=== PATIENT | female | born 1935 | race Caucasian/White ===

== ENCOUNTER 2021-02-02 13:37 | Emergency (ER) | payer MEDICARE, OTHER ==
[2021-02-02] MEDS: Sodium Chloride 0.9% 250 ML IV SCH (13:37)
[2021-02-02] MEDS ORDERED: Sodium Chloride 0.9% 10 ML Syringe FLUSH PRN (13:59)
--- NOTE | 2021-02-02 14:09 | EDM.PDOC ---
ED HPI GENERAL MEDICAL PROBLEM - General Chief Complaint: General Stated Complaint: Confusion,Hypotension Time Seen by Provider: 02/02/21 13:57 Source of Information: Reports: Patient, Other ([facility] staff) History Limitations: Reports: No Limitations - History of Present Illness INITIAL COMMENTS - FREE TEXT/NARRATIVE: Patient referred to ER from [facility] due to increased confusion and hypotension noted earlier today. Staff concerned about possible sepsis from UTI. Patient had asymptomatic pyuria recently be it was elected to observe patient at that time and no antibiotics were initiated. Patient says she recalls being confused this morning and did not know how she got into her wheelchair. She says she feels fine now. Alert and oriented. No accompanying focal neuro changes o bserved/reported by staff. - Related Data Allergies Allergy/AdvReac Type Severity Reaction Status Date / Time No Known Allergies Allergy Verified 03/28/18 10:34 Home Meds: Home Meds Acetaminophen [Acetaminophen Extra Strength] 1,000 mg PO BID PRN 03/28/18 [History] Aspirin [Adult Low Dose Aspirin EC] 81 mg PO DAILY@11 03/28/18 [History] Cyclobenzaprine [Flexeril] 5 mg PO BID@0400,1800 03/28/18 [History] Gabapentin [Neurontin] 1,200 mg PO TID@0400,1100,1800 03/28/18 [History] Mirtazapine 7.5 mg PO DAILY@04 03/28/18 [History] Rosuvastatin Calcium 20 mg PO DAILY@04 03/28/18 [History] Cholecalciferol (Vitamin D3) [Vitamin D3] 2,000 unit PO DAILY@0400 02/02/21 [History] Clotrimazole [Clotrimazole 1%] 1 applic TOP BID 02/02/21 [History] DULoxetine [Cymbalta] 60 mg PO DAILY@1800 02/02/21 [History] Diclofenac Epolamine [Flector] 1 each TD Q12HR PRN 02/02/21 [History] MO/Pet,Wh/Phenylephrine/Shk Lv [Preparation H Oint] 57 gm RC ASDIRECTED PRN 02/02/21 [History] Mag Hydrox/Aluminum Hyd/Simeth [Maalox Maximum Strength Susp] 2.5 ml PO QID PRN 02/02/21 [History] Magnesium Hydroxide [Milk of Magnesia] 30 ml PO DAILY PRN 02/02/21 [History] Mineral Oil/Petrolatum,White [Genteal Tears Severe 3%-94%] 3.5 gm EYEBOTH TID PRN 02/02/21 [History] Oxybutynin Chloride [Oxybutynin Chloride ER] 1 tab PO DAILY@1800 02/02/21 [Hi story] PEG 400/Hypromellose/Glycerin [Visine Tears Drops] 2 drop EYEBOTH QID PRN 02/02/21 [History] Pantoprazole Sodium [Protonix] 40 mg PO DAILY@0400 02/02/21 [History] Sucralfate 1 gm PO 0000,0400,1100,1800 02/02/21 [History] Sulfamethoxazole/Trimethoprim [Septra DS] 1 each PO BID #14 tab 02/02/21 [Rx] Trolamine Salicylate/Aloe Vera [Aspercreme 10%] 1 applic TOP BID PRN 02/02/21 [History] Vit A/Vit C/Vit E/Zinc/Copper [Preservision Areds Softgel] 1 cap PO BID@0400,1800 02/02/21 [History] diphenhydrAMINE [Benadryl] 2.5 ml PO QID PRN 02/02/21 [History] metFORMIN [Glucophage] 1,000 mg PO DAILY@0400 02/02/21 [History] polyethylene glycoL 3350 [MiraLAX] 17 gm PO DAILY PRN 02/02/21 [History] Past Medical History HEENT History: Reports: Cataract, Glaucoma, Hard of Hearing, Impaired Vision, Other (See Below) Other HEENT History: She wears glasses. No hearing aide therapy. Cardiovascular History: Reports: CAD, High Cholesterol, FL, PTCA, Syncope, Other (See Below) Other Cardiovascular History: History of recurrent syncope/vasovagal syncope. History of FL in 2004 with procedure as below. Respiratory History: Reports: COPD, TB, Other (See Below) Other Respiratory History: COPD by chest x-ray with no current medical therapy. Apparent tuberculosis diagnosed as a teenager. Gastrointestinal History: Reports: Cholelithiasis, GERD, PUD, Other (See Below) Other Gastrointestinal History: Previous duodenal ulcer but no direct GI bleed. Cholelithiasis/sludge with no surgery required. Genitourinary History: Reports: Urinary Incontinence, UTI, Recurrent [employer] History: Reports: Dysfunctional Uterine Bleeding, Fibroids, Polycystic Ovaries, , Spontaneous Other [employer] History: Menopause at age 54. 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 Musculoskeletal History: Reports: Arthritis, Back Pain, Chronic, Fracture, Neck Pain, Chronic, Osteoarthritis, Osteoporosis, Other (See Below) Other Musculoskeletal History: History of spondylosis and spondylolisthesis with sciatica and chronic pain syndrome. Dupuytren contractures. Left digit #1 fracture in 1984 with surgery as below. Neurological History: Reports: Headaches, Chronic, Neuropathy, Diabetic, Neuropathy, Peripheral Psychiatric History: Reports: Anxiety, Depression, Other (See Below) Other Psychiatric History: Chronic insomnia Endocrine/Metabolic History: Reports: Diabetes, Type II, Osteopenia, Osteoporosis Hematologic History: Reports: Anemia, Blood Transfusion(s), Other (See Below) Other Hematologic History: Transfusions 3 secondary to bleeding from ovarian cysts as below? Immunologic History: Reports: None Oncologic (Cancer) History: Reports: None Dermatologic History: Reports: None - Infectious Disease History Infectious Disease History: Reports: Chicken Pox, Shingles, TB Other Infectious Disease History: Left facial herpes zoster in her 70s with no ocular involvement. TB diagnosed in teenage years as above with apparent previous treatment. - Past Surgical History Head Surgeries/Procedures: Reports: None HEENT Surgical History: Reports: Cataract Surgery, Eye Surgery, Oral Surgery, Other (See Below) Other HEENT Surgeries/Procedures: Bilateral cataract surgery in her late 70s. Surgery of her glaucoma bilaterally initially in her 60s and then in her 70s. Cardiovascular Surgical History: Reports: Coronary Artery Stent, Percutaneous Transluminal Angioplasty, Other (See Below) Other Cardiovascular Surgeries/Procedures: PTCA/stent 3 in 2004. Respiratory Surgical History: Reports: None GI Surgical History: Reports: Appendectomy, Colonoscopy, EGD, Other (See Below) Other GI Surgeries/Procedures: Colonoscopy and EGD in early 1999. Incidental appendectomy at time of bilateral partial nephrectomies as below. Female Surgical History: Reports: D&C, Oophorectomy, Other (See Below) Other Female Surgeries/Procedures: D&C secondary to SAB at about age 22. Bilateral partial hysterectomy secondary to ovarian ruptures with secondary severe bleeding requiring blood transfusions as above. Endocrine Surgical History: Reports: None Neurological Surgical History: Reports: C-Spine, Laminectomy, Lumbar Spine, Spinal Fusion, Other (See Below) Other Neurological Surgeries/Procedures: C-spine spinal fusions initially in 1989 and 1991. Laminectomy in the lumbar regions and 1999 and in 2001. Musculoskeletal Surgical History: Reports: Carpal Tunnel, Ganglion Cyst, ORIF, Other (See Below) Other Musculoskeletal Surgeries/Procedures:: Right-sided carpal tunnel release in 1985 and concomitant partial right wrist fusion. Ganglion cyst excision in right wrist in the early . ORIF of digit #1 left foot fracture in 1984. Oncologic Surgical History: Reports: None Dermatological Surgical History: Reports: None Social & Family History - Family History Family Medical History: Unobtainable - Caffeine Use Caffeine Use: Reports: Soda (8 sodas per day), Tea (8 Cups per day). Denies: Coffee, Energy Drinks - Living Situation & Occupation Living situation: Reports: ( in [facility]), Extended Care Facility (Admitted to [facility] in [facility] on 03/27/18) Occupation: Disabled (Disabled in 1992 secondary to her osteoarthritis. Formerly a teacher.) ED ROS GENERAL - Review of Systems Review Of Systems: See Below Constitutional: Reports: No Symptoms HEENT: Reports: No Symptoms Respiratory: Reports: No Symptoms Cardiovascular: Reports: No Symptoms GI/Abdominal: Reports: Other (No acute changes. Says she has some chronic discomfort and generalized abdominal area. Unchanged. ). Denies: Melena, Nausea, Vomiting : Reports: No Symptoms. Denies: Dysuria, Flank Pain, Frequency, Hematuria, Pain, Urgency, Urinary Retention Musculoskeletal: Reports: Other (no acute changes from baseline) Skin: Reports: No Symptoms Neurological: Reports: Confusion, Other (No acute changes from baseline other than the earlier episode of confusion) Psychiatric: Reports: Confusion Hematologic/Lymphatic: Reports: No Symptoms Immunologic: Reports: No Symptoms ED EXAM, GENERAL - Physical Exam Exam: See Below Exam Limited By: No Limitations General Appearance: Alert, WD/WN, No Apparent Distress Eye Exam: Bilateral Eye: EOMI, PERRL Ears: Other (has hearing aids) Nose: No: Nasal Deformity, Nasal Swelling, Nasal Drainage Throat/Mouth: Normal Voice, No Airway Compromise, Other (left corner mouth/cheek droop) Head: Atraumatic Neck: Supple, Non-Tender, Full Range of Motion Respiratory/Chest: No Respiratory Distress, Lungs Clear, Normal Breath Sounds, No Accessory Muscle Use, Chest Non-Tender Cardiovascular: Regular Rate, Rhythm, No Edema, No JVD, No Murmur GI/Abdominal: Soft, Other (mild discomfort all quadrants per patient/says it is "normal" level discomfort. ) (Female) Exam: Deferred Rectal (Female) Exam: Deferred Back Exam: No: CVA Tenderness (L), CVA Tenderness (R), Muscle Spasm Extremities: No Pedal Edema, Normal Capillary Refill, Other (mild diffuse tenderness legs but patient says this is also chronic) Neurological: Alert, Oriented, Other (Moves all 4 limbs equally. Has above noted left facial droop which is not new) Psychiatric: Normal Affect, Normal Mood, Other (Verbally profuse/nonstop talking during evaluation) Skin Exam: Warm, Dry, Normal Color Course - Orders/Labs/Meds Orders: Active Orders 24 hr Category Date Time Status Head wo Cont [CT] Stat Exams 02/02/21 14:28 Taken COMPREHENSIVE METABOLIC PN,CMP [CHEM] Stat Lab 02/02/21 14:15 Results CULTURE BLOOD [BC] Stat Lab 02/02/21 14:15 Received CULTURE BLOOD [BC] Stat Lab 02/02/21 14:40 Received CULTURE URINE [RM] Routine Lab 02/02/21 18:07 Ordered MG [MAGNESIUM] [CHEM] Stat Lab 02/02/21 14:15 Results Sodium Chloride 0.9% [Normal Saline] 250 ml Med 02/02/21 13:00 Active IV ASDIRECTED Sodium Chloride 0.9% [Saline Flush] Med 02/02/21 13:59 Active 10 ml FLUSH ASDIRECTED PRN Blood Culture x2 Reflex Set [OM.PC] Stat Oth 02/02/21 13:59 Ordered Saline Lock Insert [OM.PC] Routine Oth 02/02/21 13:59 Ordered Medication Orders Sodium Chloride (Normal Saline) 250 mls @ 999 mls/hr IV ASDIRECTED TYRON Last Admin: 02/02/21 13:37 Dose: 999 mls/hr Documented by: ASHLEIGHTAParul Sodium Chloride (Sodium Chloride 0.9% 10 Ml Syringe) 10 ml FLUSH ASDIRECTED PRN PRN Reason: Keep Vein Open Labs: Laboratory Tests 02/02/21 02/02/21 02/02/21 Range/Units 14:15 14:15 14:15 WBC 16.8 H (4.0-10.2) K/uL RBC 3.69 L (3.77-5.09) M/uL Hgb 11.0 L (11.7-15.5) g/dL Hct 33.0 L (34.0-46.0) % MCV 89.4 (84.0-98.0) fL MCH 29.8 (28.2-33.3) pg MCHC 33.3 (31.7-36.0) g/dL RDW 14.3 H (11.2-14.1) % Plt Count 226 (150-350) K/uL Neut % (Auto) 85.3 H (45.0-80.0) % Lymph % (Auto) 4.5 L (10.0-50.0) % [place] % (Auto) 9.9 (2.0-14.0) % Eos % (Auto) 0.0 (0.0-5.0) % Baso % (Auto) 0.3 (0.0-2.0) % Neut # (Auto) 14.34 H (1.40-7.00) K/uL Lymph # (Auto) 0.75 (0.50-3.50) K/uL [place] # (Auto) 1.66 H (0.00-1.00) K/uL Eos # (Auto) 0.00 (0.00-0.50) K/uL Baso # (Auto) 0.05 (0.00-0.20) K/uL Sodium 130 L (136-145) mmol/L Potassium 4.4 (3.5-5.1) mmol/L Chloride 94 L (98-107) mmol/L Carbon Dioxide 25.2 (21.0-32.0) mmol/L Anion Gap 15.2 H (7-15) meq/L BUN 30 H (7-18) mg/dL Creatinine 1.67 H (0.51-1.17) mg/dL Est Cr Clr Drug Dosing TNP Estimated GFR (MDRD) 29 mL/min Glucose 137 H (70-99) mg/dL Lactic Acid 2.2 H (0.4-2.0) mmol/L Calcium 9.1 (8.5-10.1) mg/dL Magnesium 2.0 (1.8-2.4) mg/dL Total Bilirubin 0.5 (0.2-1.0) mg/dL ALT 24 (12-78) U/L Alkaline Phosphatase 85 (46-116) IU/L Total Protein 7.7 (6.4-8.2) g/dL Albumin 3.8 (3.4-5.0) g/dL Specimen Type Urine Color Urine Appearance Urine pH (5.0-9.0) Ur Specific [place] (1.005-1.030) Urine Protein (NEGATIVE) mg/dL Urine Glucose (UA) (NEGATIVE) mg/dL Urine Ketones (NEGATIVE) mg/dL Urine Occult Blood (NEGATIVE) Urine Nitrite (NEGATIVE) Urine Bilirubin (NEGATIVE) Urine Urobilinogen (0.2-1.0) E.U./dL Ur Leukocyte Esterase (NEGATIVE) U Hyaline Cast (Auto) Urine RBC /HPF Urine WBC /HPF Ur Epithelial Cells /LPF Urine Bacteria (NONE TO FEW) /HPF 02/02/21 Range/Units 15:55 WBC (4.0-10.2) K/uL RBC (3.77-5.09) M/uL Hgb (11.7-15.5) g/dL Hct (34.0-46.0) % MCV (84.0-98.0) fL MCH (28.2-33.3) pg MCHC (31.7-36.0) g/dL RDW (11.2-14.1) % Plt Count (150-350) K/uL Neut % (Auto) (45.0-80.0) % Lymph % (Auto) (10.0-50.0) % [place] % (Auto) (2.0-14.0) % Eos % (Auto) (0.0-5.0) % Baso % (Auto) (0.0-2.0) % Neut # (Auto) (1.40-7.00) K/uL Lymph # (Auto) (0.50-3.50) K/uL [place] # (Auto) (0.00-1.00) K/uL Eos # (Auto) (0.00-0.50) K/uL Baso # (Auto) (0.00-0.20) K/uL Sodium (136-145) mmol/L Potassium (3.5-5.1) mmol/L Chloride (98-107) mmol/L Carbon Dioxide (21.0-32.0) mmol/L Anion Gap (7-15) meq/L BUN (7-18) mg/dL Creatinine (0.51-1.17) mg/dL Est Cr Clr Drug Dosing Estimated GFR (MDRD) mL/min Glucose (70-99) mg/dL Lactic Acid (0.4-2.0) mmol/L Calcium (8.5-10.1) mg/dL Magnesium (1.8-2.4) mg/dL Total Bilirubin (0.2-1.0) mg/dL ALT (12-78) U/L Alkaline Phosphatase (46-116) IU/L Total Protein (6.4-8.2) g/dL Albumin (3.4-5.0) g/dL Specimen Type Urinqcath Urine Color Yellow Urine Appearance Cloudy Urine pH 6.5 (5.0-9.0) Ur Specific [place] 1.015 (1.005-1.030) Urine Protein 100 H (NEGATIVE) mg/dL Urine Glucose (UA) Negative (NEGATIVE) mg/dL Urine Ketones Negative (NEGATIVE) mg/dL Urine Occult Blood Trace-intact H (NEGATIVE) Urine Nitrite Negative (NEGATIVE) Urine Bilirubin Negative (NEGATIVE) Urine Urobilinogen 0.2 (0.2-1.0) E.U./dL Ur Leukocyte Esterase Trace H (NEGATIVE) U Hyaline Cast (Auto) Rare Urine RBC 0-5 /HPF Urine WBC 40-50 H /HPF Ur Epithelial Cells Rare /LPF Urine Bacteria Many H (NONE TO FEW) /HPF Meds: Medications Generic Name Dose Route Start Last Admin Trade Name Freq PRN Reason Stop Dose Admin Sodium Chloride 250 mls @ 999 mls/hr 02/02/21 13:00 02/02/21 13:37 Normal Saline IV 999 mls/hr ASDIRECTED TYRON Administration Sodium Chloride 10 ml 02/02/21 13:59 Sodium Chloride 0.9% 10 Ml Syringe FLUSH ASDIRECTED PRN Keep Vein Open Discontinued Medications Generic Name Dose Route Start Last Admin Trade Name Freq PRN Reason Stop Dose Admin Ceftriaxone Sodium 1 gm/ 100 mls @ 200 mls/hr 02/02/21 14:00 02/02/21 14:58 Sodium Chloride IV 02/02/21 14:29 200 mls/hr ONETIME ONE Administration - Re-Assessments/Exams Free Text/Narrative Re-Assessment/Exam: 02/02/21 15:23 Labs including blood cultures ordered. BP a bit low upon arrival. 250ml bolus NS ordered to be followed by 1g Rocephin. Noncontrast head CT due to the amaya confusion reported by [facility]/results pending. Patient comfortable and without complaint. WBC 18.8 HGB 11 NA 130 Cr 1.67 Glu 137 Lactic 2.2 UA pending No evidence of acute sepsis found on exam. 02/02/21 16:40 UA showed elevated WBCs. UC requested. Will start patient on Septra for now. Unable to be certain this is linked to today's episode of observed confusion. Head CT unremarkable for acute change. [facility] to continue to observe for changes and get additional follow up as needed if there are concerns. Patient comfortable/stable entire stay. Stayed very chatty, able to transfer self well. Departure - Departure Time of Disposition: 16:45 Disposition: Home, Self-Care 01 Condition: Good Clinical Impression: UTI, Urinary tract infectious disease, Episode of confusion - Discharge Information *PRESCRIPTION DRUG MONITORING PROGRAM REVIEWED*: Not Applicable *COPY OF PRESCRIPTION DRUG MONITORING REPORT IN PATIENT BALDO: Not Applicable Prescriptions: Sulfamethoxazole/Trimethoprim [Septra DS] 1 each PO BID #14 tab Referrals: Bárbara Monique PA [Primary Care Provider] - Forms: ED Department Discharge Additional Instructions: Watch for changes. There is a urinary tract infection and we have requested a urine culture. For now take Septra every 12 hours. Recommend recheck of urine next Monday to make certain the infection fully cleared. If UC shows there is a better antibiotic we will contact you and get it changed. Cannot be certain however that the UTI caused the confusion earlier this morning. Follow up as needed if there are further problems. - My Orders Last 24 Hours: My Active Orders 02/02/21 13:00 Sodium Chloride 0.9% [Normal Saline] 250 ml IV ASDIRECTED 02/02/21 13:59 Sodium Chloride 0.9% [Saline Flush] 10 ml FLUSH ASDIRECTED PRN Blood Culture x2 Reflex Set [OM.PC] Stat Saline Lock Insert [OM.PC] Routine 02/02/21 14:15 COMPREHENSIVE METABOLIC PN,CMP [CHEM] Stat CULTURE BLOOD [BC] Stat MG [MAGNESIUM] [CHEM] Stat 02/02/21 14:28 Head wo Cont [CT] Stat 02/02/21 14:40 CULTURE BLOOD [BC] Stat 02/02/21 18:07 CULTURE URINE [RM] Routine - Assessment/Plan Last 24 Hours: My Active Orders 02/02/21 13:00 Sodium Chloride 0.9% [Normal Saline] 250 ml IV ASDIRECTED 02/02/21 13:59 Sodium Chloride 0.9% [Saline Flush] 10 ml FLUSH ASDIRECTED PRN Blood Culture x2 Reflex Set [OM.PC] Stat Saline Lock Insert [OM.PC] Routine 02/02/21 14:15 COMPREHENSIVE METABOLIC PN,CMP [CHEM] Stat CULTURE BLOOD [BC] Stat MG [MAGNESIUM] [CHEM] Stat 02/02/21 14:28 Head wo Cont [CT] Stat 02/02/21 14:40 CULTURE BLOOD [BC] Stat 02/02/21 18:07 CULTURE URINE [RM] Routine
[2021-02-02 14:55] LABS: CHLORIDE,CL 94 mmol/L (98-107); SODIUM,NA 130 mmol/L (136-145)
[2021-02-02 14:56] LABS: ANION GAP 15.2 meq/L (7-15)
[2021-02-02] MEDS: cefTRIAXone 1 GM in Sodium Chloride 0.9% 100 ML IV ONE (14:58)
[2021-02-02 19:11] VITALS: BP 96/72; PULSE 82
== END 2021-02-02 17:00 | disposition home or self-care (01) ==
LOC: LL.ED 13:37
DX: N39.0 Urinary tract infection, site not specified (principal); R41.0 Disorientation, unspecified; I25.10 Atherosclerotic heart disease of native coronary artery without angina pectoris; E78.00 Pure hypercholesterolemia, unspecified; I25.2 Old myocardial infarction; J44.9 Chronic obstructive pulmonary disease, unspecified; K21.9 Gastro-esophageal reflux disease without esophagitis; E11.42 Type 2 diabetes mellitus with diabetic polyneuropathy; Z79.82 Long term (current) use of aspirin; Z79.84 Long term (current) use of oral hypoglycemic drugs; Z79.899 Other long term (current) drug therapy
CPT/HCPCS: 36415; 70450; 80053; 81001; 83605; 83735; 85025; 87040; 87086; 87088; 87186; 96365; 99284; 99285-25; J0696; J7050

== ENCOUNTER 2022-01-15 06:34 | Emergency (ER) | payer MEDICARE, OTHER ==
[2022-01-15 07:49] LABS: CHLORIDE,CL 98 mmol/L (98-107); SODIUM,NA 131 mmol/L (136-145)
[2022-01-15 07:52] LABS: PTT,PARTIAL THROMBOPLSTIN TIME 26.3 SEC (23.6-29.8)
[2022-01-15 07:57] LABS: ANION GAP 13.6 meq/L (7-15); ESTIMATED GFR 31 mL/min (>=60)
== END 2022-01-15 10:50 | disposition home or self-care (01) ==
LOC: LL.ED 06:34
DX: N30.00 Acute cystitis without hematuria (principal); I25.10 Atherosclerotic heart disease of native coronary artery without angina pectoris; J44.9 Chronic obstructive pulmonary disease, unspecified; I25.2 Old myocardial infarction; E11.9 Type 2 diabetes mellitus without complications; Z79.899 Other long term (current) drug therapy; Z79.82 Long term (current) use of aspirin; Z90.49 Acquired absence of other specified parts of digestive tract
CPT/HCPCS: 36415; 71045; 80053; 81001; 83605; 83735; 84100; 84443; 85025; 85610; 85730; 86140; 87086; 87088; 87186; 99284; 99285

== ENCOUNTER 2024-03-08 12:23 | Emergency (ER) | payer MEDICARE, OTHER ==
[2024-03-08] MEDS ORDERED: Sodium Chloride 0.9% 10 ML Syringe FLUSH PRN (12:33)
[2024-03-08 12:45] LABS: BASOPHILS ABSOLUTE AUTO 0.12 K/uL (0.00-0.20); BASOPHILS PERCENT AUTO 2.3 % (0.0-2.0); EOSINOPHILS ABSOLUTE AUTO 0.03 K/uL (0.00-0.50); EOSINOPHILS PERCENT AUTO 0.6 % (0.0-5.0); HEMATOCRIT 37.7 % (34.0-46.0); HEMOGLOBIN 12.2 g/dL (11.7-15.5); LYMPHOCYTES ABSOLUTE AUTO 1.42 K/uL (0.50-3.50); LYMPHOCYTES PERCENT AUTO 26.8 % (10.0-50.0); MEAN CORPUSCULAR HEMOGLOBIN 29.8 pg (28.2-33.3); MEAN CORPUSCULAR HGB CONC 32.4 g/dL (31.7-36.0); MONOCYTES ABSOLUTE AUTO 0.59 K/uL (0.00-1.00); MONOCYTES PERCENT AUTO 11.1 % (2.0-14.0); NEUTROPHILS ABSOLUTE AUTO 3.14 K/uL (1.40-7.00); NEUTROPHILS PERCENT AUTO 59.2 % (45.0-80.0); PLATELET COUNT,PLT 231 K/uL (150-350); RED CELL DISTRIBUTION WIDTH 15.1 % (11.2-14.1); WHITE BLOOD CELL COUNT,WBC 5.3 K/uL (4.0-10.2)
[2024-03-08 12:54] LABS: PROTHROMBIN TIME 10.2 SEC (9.0-11.1)
[2024-03-08 13:03] LABS: ALANINE AMINOTRANSFERASE,ALT 28 U/L (12-78); ALBUMIN 4.1 g/dL (3.4-5.0); ALKALINE PHOSPHATASE 112 IU/L (46-116); ANION GAP 7.7 meq/L (7-15); ASPARTATE AMNIOTRANSFERASE,AST 26 U/L (15-37); BILIRUBIN TOTAL 0.3 mg/dL (0.2-1.0); BLOOD UREA NITROGEN,BUN 21 mg/dL (7-18); CALCIUM 8.9 mg/dL (8.5-10.1); CARBON DIOXIDE,CO2 28.3 mmol/L (21.0-32.0); CHLORIDE,CL 101 mmol/L (98-107); CREATININE 1.35 mg/dL (0.51-1.17); GLUCOSE RANDOM 97 mg/dL (70-99); LIPASE 34 U/L (16-77); MAGNESIUM 2.4 mg/dL (1.8-2.4); POTASSIUM,K 3.8 mmol/L (3.5-5.1); PROTEIN TOTAL,TP 9.2 g/dL (6.4-8.2); SODIUM,NA 137 mmol/L (136-145)
[2024-03-08 13:04] LABS: ESTIMATED GFR 38 mL/min (>=60)
== END 2024-03-08 14:00 | disposition home or self-care (01) ==
LOC: LL.ED 12:23
DX: R07.89 Other chest pain (principal); M54.2 Cervicalgia; K21.9 Gastro-esophageal reflux disease without esophagitis; I25.10 Atherosclerotic heart disease of native coronary artery without angina pectoris; E78.00 Pure hypercholesterolemia, unspecified; E11.9 Type 2 diabetes mellitus without complications; Z79.899 Other long term (current) drug therapy; Z79.82 Long term (current) use of aspirin
CPT/HCPCS: 36415; 71045; 80053; 83690; 83735; 83880; 84484; 85025; 85610; 93005; 93010; 99284; 99285

== ENCOUNTER 2024-03-30 14:26 | Emergency (ER) | payer MEDICARE, OTHER ==
[2024-03-30] MEDS: Aspirin 81 MG Tab.Chew PO ONE (14:41)
[2024-03-30] MEDS: Nitroglycerin 0.4 MG Tab.SL SL ONE (14:42)
[2024-03-30 14:50] LABS: BASOPHILS ABSOLUTE AUTO 0.02 K/uL (0.00-0.20); BASOPHILS PERCENT AUTO 0.5 % (0.0-2.0); EOSINOPHILS ABSOLUTE AUTO 0.01 K/uL (0.00-0.50); EOSINOPHILS PERCENT AUTO 0.2 % (0.0-5.0); HEMATOCRIT 33.6 % (34.0-46.0); IMMATURE GRAN ABSOLUTE AUTO 0.03 10^3/uL (0.00-0.50); IMMATURE GRAN PERCENT AUTO 0.7 % (0.0-5.0); LYMPHOCYTES ABSOLUTE AUTO 1.29 K/uL (0.50-3.50); MEAN CORPUSCULAR HEMOGLOBIN 29.6 pg (28.2-33.3); MEAN CORPUSCULAR HGB CONC 32.7 g/dL (31.7-36.0); MEAN CORPUSCULAR VOLUME 90.6 fL (84.0-98.0); MONOCYTES ABSOLUTE AUTO 0.56 K/uL (0.00-1.00); MONOCYTES PERCENT AUTO 13.5 % (2.0-14.0); NEUTROPHILS ABSOLUTE AUTO 2.25 K/uL (1.40-7.00); NEUTROPHILS PERCENT AUTO 54.1 % (45.0-80.0); PLATELET COUNT,PLT 210 K/uL (150-350); RED BLOOD CELL COUNT 3.71 M/uL (3.77-5.09); RED CELL DISTRIBUTION WIDTH 14.4 % (11.2-14.1); WHITE BLOOD CELL COUNT,WBC 4.2 K/uL (4.0-10.2)
[2024-03-30] MEDS: Aspirin 81 MG Tab.Chew ONE (14:59)
[2024-03-30 15:07] LABS: ALBUMIN 3.9 g/dL (3.4-5.0); ANION GAP 9.3 meq/L (7-15); BILIRUBIN TOTAL 0.4 mg/dL (0.2-1.0); CALCIUM 9.5 mg/dL (8.5-10.1); CARBON DIOXIDE,CO2 25.7 mmol/L (21.0-32.0); CREATININE 1.22 mg/dL (0.51-1.17); EST CRCL DRUG DOSING (CG) 23.78 mL/min; LACTIC ACID 0.4 mmol/L (0.4-2.0); MAGNESIUM 2.1 mg/dL (1.8-2.4); POTASSIUM,K 3.9 mmol/L (3.5-5.1); PROTEIN TOTAL,TP 8.6 g/dL (6.4-8.2)
[2024-03-30 15:34] LABS: PROTHROMBIN TIME 10.2 SEC (9.0-11.1)
== END 2024-03-30 19:10 | disposition home or self-care (01) ==
LOC: LL.ED 14:26
DX: R07.89 Other chest pain (principal); I25.10 Atherosclerotic heart disease of native coronary artery without angina pectoris; E78.00 Pure hypercholesterolemia, unspecified; J44.9 Chronic obstructive pulmonary disease, unspecified; K21.9 Gastro-esophageal reflux disease without esophagitis; E11.40 Type 2 diabetes mellitus with diabetic neuropathy, unspecified; Z95.5 Presence of coronary angioplasty implant and graft; Z90.49 Acquired absence of other specified parts of digestive tract; Z79.899 Other long term (current) drug therapy; Z79.82 Long term (current) use of aspirin; Z88.2 Allergy status to sulfonamides; Z91.048 Other nonmedicinal substance allergy status
CPT/HCPCS: 36415; 71045; 80053; 82150; 83605; 83690; 83735; 83880; 84484; 85025; 85379; 85610; 85730; 93005; 93010; 99284; 99285; A9270-GY

== ENCOUNTER 2024-05-19 01:42 | Emergency (ER) | payer MEDICARE, OTHER | END 2024-05-19 03:42 | disposition home or self-care (01) | LOC: LL.ED 01:42 | DX: S49.92XA Unspecified injury of left shoulder and upper arm, initial encounter (principal); M75.52 Bursitis of left shoulder; I25.10 Atherosclerotic heart disease of native coronary artery without angina pectoris; K21.9 Gastro-esophageal reflux disease without esophagitis; E78.00 Pure hypercholesterolemia, unspecified; E11.9 Type 2 diabetes mellitus without complications; Z88.2 Allergy status to sulfonamides; Z88.8 Allergy status to other drugs, medicaments and biological substances; Z79.82 Long term (current) use of aspirin; Z79.899 Other long term (current) drug therapy; Z90.49 Acquired absence of other specified parts of digestive tract; W18.30XA Fall on same level, unspecified, initial encounter | CPT/HCPCS: 71101-LT; 73030-LT; 73060-LT; 99283; 99284 ==

== ENCOUNTER 2024-08-16 10:37 | Emergency (ER) | payer MEDICARE, OTHER ==
[2024-08-16 11:03] LABS: BASOPHILS ABSOLUTE AUTO 0.05 K/uL (0.00-0.20); BASOPHILS PERCENT AUTO 0.6 % (0.0-2.0); HEMOGLOBIN 7.6 g/dL (11.7-15.5); IMMATURE GRAN ABSOLUTE AUTO 0.03 10^3/uL (0.00-0.04); IMMATURE GRAN PERCENT AUTO 0.4 % (0.0-0.4); LYMPHOCYTES ABSOLUTE AUTO 0.54 K/uL (0.50-3.50); LYMPHOCYTES PERCENT AUTO 6.6 % (10.0-50.0); MEAN CORPUSCULAR HEMOGLOBIN 29.7 pg (28.2-33.3); MEAN CORPUSCULAR HGB CONC 32.2 g/dL (31.7-36.0); MEAN CORPUSCULAR VOLUME 92.2 fL (84.0-98.0); MONOCYTES PERCENT AUTO 30.6 % (2.0-14.0); NEUTROPHILS ABSOLUTE AUTO 5.06 K/uL (1.40-7.00); NEUTROPHILS PERCENT AUTO 61.8 % (45.0-80.0); PLATELET COUNT,PLT 111 K/uL (150-350); RED BLOOD CELL COUNT 2.56 M/uL (3.77-5.09); RED CELL DISTRIBUTION WIDTH 14.9 % (11.2-14.1); WHITE BLOOD CELL COUNT,WBC 8.2 K/uL (4.0-10.2)
[2024-08-16 11:08] LABS: HEMATOCRIT 23.6 % (34.0-46.0)
[2024-08-16] MEDS: cefTRIAXone 1 GM Vial IVPUSH SCH (11:08)
[2024-08-16] MEDS: Lactated Ringers 1,000 ML IV ONE (11:09)
[2024-08-16] MEDS: Sodium Chloride 0.9% 10 ML Syringe FLUSH PRN (11:10)
[2024-08-16] MEDS: Azithromycin 500 MG in Sodium Chloride 0.9% 250 ML IV ONE (12:25)
[2024-08-16] MEDS ORDERED: Lactated Ringers 1,000 ML IV SCH (12:45)
[2024-08-16] MEDS: Sodium Chloride 0.9% 1,000 ML IV SCH (12:48)
[2024-08-16 13:10] LABS: ALBUMIN 3.3 g/dL (3.4-5.0); BILIRUBIN TOTAL 0.4 mg/dL (0.2-1.0); CALCIUM 8.3 mg/dL (8.5-10.1); CARBON DIOXIDE,CO2 17.9 mmol/L (21.0-32.0); CREATININE 1.57 mg/dL (0.51-1.17); EST CRCL DRUG DOSING (CG) 19.41 mL/min; MAGNESIUM 1.8 mg/dL (1.8-2.4); POTASSIUM,K 3.1 mmol/L (3.5-5.1); PROTEIN TOTAL,TP 7.8 g/dL (6.4-8.2)
[2024-08-16 13:11] LABS: LACTIC ACID 1.1 mmol/L (0.4-2.0)
[2024-08-16 13:12] LABS: ANION GAP 17.2 meq/L (7-15)
== END 2024-08-16 12:57 ==
LOC: LL.ED 10:37
DX: K92.2 Gastrointestinal hemorrhage, unspecified (principal); D64.9 Anemia, unspecified; N39.0 Urinary tract infection, site not specified; I25.10 Atherosclerotic heart disease of native coronary artery without angina pectoris; E78.00 Pure hypercholesterolemia, unspecified; I25.2 Old myocardial infarction; J44.9 Chronic obstructive pulmonary disease, unspecified; E11.40 Type 2 diabetes mellitus with diabetic neuropathy, unspecified; Z88.2 Allergy status to sulfonamides; Z91.048 Other nonmedicinal substance allergy status; Z79.82 Long term (current) use of aspirin; Z79.899 Other long term (current) drug therapy; Z79.51 Long term (current) use of inhaled steroids
CPT/HCPCS: 36415; 51702; 71045; 80053; 82272; 83605; 83735; 83880; 84484; 85025; 87040; 93010; 96361; 96365; 96375; 99284; 99285-25; J0456; J0696; J7030; J7120

== ENCOUNTER 2025-02-19 19:32 | Emergency (ER) | payer MEDICARE ==
[2025-02-19] MEDS ORDERED: Sodium Chloride 0.9% 10 ML Syringe FLUSH PRN (19:49)
[2025-02-19] MEDS: Alum Hydrox/Mag Hydrox/Simeth 30 ML, Lidocaine 2% 15 ML PO ONE (20:00)
[2025-02-19] MEDS: Aluminum Hydroxide/Magnesium Hydroxide/Simethicone Susp 30 ML Cup PO ONE (20:01)
[2025-02-19 20:11] LABS: BASOPHILS ABSOLUTE AUTO 0.03 K/uL (0.00-0.20); BASOPHILS PERCENT AUTO 0.7 % (0.0-2.0); EOSINOPHILS ABSOLUTE AUTO 0.01 K/uL (0.00-0.50); EOSINOPHILS PERCENT AUTO 0.2 % (0.0-5.0); IMMATURE GRAN ABSOLUTE AUTO 0.04 10^3/uL (0.00-0.04); IMMATURE GRAN PERCENT AUTO 0.9 % (0.0-0.4); LYMPHOCYTES ABSOLUTE AUTO 1.14 K/uL (0.50-3.50); LYMPHOCYTES PERCENT AUTO 26.2 % (10.0-50.0); MONOCYTES ABSOLUTE AUTO 0.81 K/uL (0.00-1.00); MONOCYTES PERCENT AUTO 18.6 % (2.0-14.0); NEUTROPHILS ABSOLUTE AUTO 2.32 K/uL (1.40-7.00); NEUTROPHILS PERCENT AUTO 53.4 % (45.0-80.0); PLATELET COUNT,PLT 201 K/uL (150-350); RED BLOOD CELL COUNT 3.45 M/uL (3.77-5.09); RED CELL DISTRIBUTION WIDTH 14.8 % (11.2-14.1); WHITE BLOOD CELL COUNT,WBC 4.4 K/uL (4.0-10.2)
[2025-02-19 20:36] LABS: INR 1.0 (0.9-1.1); PTT,PARTIAL THROMBOPLSTIN TIME 27.7 SEC (23.8-34.4)
[2025-02-19 20:39] LABS: ALANINE AMINOTRANSFERASE,ALT 24 U/L (12-78); ASPARTATE AMNIOTRANSFERASE,AST 22 U/L (15-37); BILIRUBIN TOTAL 0.2 mg/dL (0.2-1.0); BLOOD UREA NITROGEN,BUN 17 mg/dL (7-18); CARBON DIOXIDE,CO2 26.8 mmol/L (21.0-32.0); CHLORIDE,CL 105 mmol/L (98-107); CREATININE 1.31 mg/dL (0.51-1.17); ESTIMATED GFR 39 mL/min (>=60); GLUCOSE RANDOM 106 mg/dL (70-99); POTASSIUM,K 5.1 mmol/L (3.5-5.1); PRO B-TYPE NATRIUR PEPT,BNPPRO 202 pg/mL (0-125); PROTEIN TOTAL,TP 8.1 g/dL (6.4-8.2); SODIUM,NA 138 mmol/L (136-145)
== END 2025-02-19 22:00 ==
LOC: LL.ED 19:32
DX: K21.9 Gastro-esophageal reflux disease without esophagitis (principal); I25.10 Atherosclerotic heart disease of native coronary artery without angina pectoris; E78.00 Pure hypercholesterolemia, unspecified; I25.2 Old myocardial infarction; J44.9 Chronic obstructive pulmonary disease, unspecified; E11.40 Type 2 diabetes mellitus with diabetic neuropathy, unspecified; Z88.2 Allergy status to sulfonamides; Z88.8 Allergy status to other drugs, medicaments and biological substances; Z79.899 Other long term (current) drug therapy
CPT/HCPCS: 36415; 71045; 80053; 83690; 83880; 84484; 85025; 85610; 85730; 93005; 99285; A9270-GY

== ENCOUNTER 2025-03-30 05:46 | Emergency (ER) | payer MEDICARE, OTHER | END 2025-03-30 06:52 | disposition home or self-care (01) | LOC: LL.ED 05:46 | DX: N95.0 Postmenopausal bleeding (principal); I25.2 Old myocardial infarction; I25.10 Atherosclerotic heart disease of native coronary artery without angina pectoris; E11.40 Type 2 diabetes mellitus with diabetic neuropathy, unspecified; E78.00 Pure hypercholesterolemia, unspecified; J44.9 Chronic obstructive pulmonary disease, unspecified; K21.9 Gastro-esophageal reflux disease without esophagitis; M19.90 Unspecified osteoarthritis, unspecified site; Z79.899 Other long term (current) drug therapy; Z88.8 Allergy status to other drugs, medicaments and biological substances; Z88.2 Allergy status to sulfonamides; Z90.49 Acquired absence of other specified parts of digestive tract | CPT/HCPCS: 99283; 99284 ==